=== PATIENT | male | born 1980 | race Caucasian/White ===

== ENCOUNTER 2024-03-05 22:00 | Emergency (ER) | payer MEDICAID, SELFPAY ==
[2024-03-05 22:06] VITALS: BP 198/146
[2024-03-05 22:09] VITALS: BP 244/143
[2024-03-05 22:13] VITALS: BP 175/138
[2024-03-05 22:27] LABS: % Basophils 0.4 % (0-2); % Immature Granulocytes 0.3 % (0-0.5); % Lymphocytes 22.3 % (20.5-51.1); % Monocytes 5.8 % (1.7-9.3); % Neutrophils 70.2 % (42.2-75.2); Absolute Eosinophils 0.1 10^3/uL (0-0.7); Absolute Lymphocytes 2.5 10^3/uL (1.2-3.4); Absolute Monocytes 0.6 10^3/uL (0.1-0.6); Absolute Neutrophils 7.8 10^3/uL (1.4-6.5); Hematocrit 46.3 % (39.0-52.0); Hemoglobin 16.1 g/dL (13.0-18.0); Mean Corp Hgb Conc. 34.8 g/dL (33.0-37.0); Mean Corpuscular Hgb 31.6 pg (27.0-31.0); Mean Corpuscular Volume 90.8 fL (80.0-94.0); Mean Platelet Volume 10.3 fL (7.4-10.4); Nucleated Red Blood Cells % 0 % (-); Platelet Count 210 10^3/uL (130-400); Red Cell Dist. Width 12.7 % (11.5-14.5); White Blood Cell Count 11.1 10^3/uL (4.8-10.8)
[2024-03-05 22:42] LABS: ALT (SGPT) 38 U/L (0-50); AST (SGOT) 33 U/L (17-59); Albumin 4.5 g/dl (3.5-5.0); Alkaline Phosphatase 89 U/L (38-126); Blood Urea Nitrogen 19 mg/dl (9-20); Calcium 9.4 mg/dl (8.4-10.2); Carbon Dioxide 24 mmol/L (22-30); Chloride 106 mmol/L (98-107); Glucose 129 mg/dl (70-99); Potassium 4.1 mmol/L (3.5-5.1); Sodium 139 mmol/L (135-145); Total Bilirubin 0.3 mg/dl (0.2-1.3); eGFR > 60.00
[2024-03-05 22:52] LABS: Troponin I 0.034 ng/ml
[2024-03-05 23:37] VITALS: BP 167/118
[2024-03-05 23:45] VITALS: BP 143/107
[2024-03-05 23:52] VITALS: BMI 31.9
[2024-03-06] VITALS (7 sets, daily range): BP systolic 140–159; BP diastolic 88–107
--- NOTE | 2024-03-06 03:24 | ED.GENMED ---
History of Present Illness
General
Chief Complaint: Blood Pressure Problem
Source: patient, previous radiology exam (February 2022: Unremarkable CT as well as MRI of the brain. Unremarkable CTA of the chest abdomen pelvis. MRI of the cervical spine showing bulging disks C6-C7 to the left.) and previous hospital records
(Previous hospitalization 2 years ago for very similar complaint.)
Exam Limitations: none
Time Seen by Provider: 03/06/24 02:26
Nursing documentation reviewed up to this point in time: agreed with
History of Present Illness
History of Present Illness:
This is a 43-year-old gentleman who has a longstanding history of malignant hypertension, history of IgA nephropathy as well as longstanding history of chronically poor compliance with medications and follow-up. He admits that he does not have a
primary care physician.
He was hospitalized here 2 years ago with similar complaints of elevated blood pressure, left-sided headache as well as left-sided chest pain. At that time he was having some left arm numbness as well.
Noted to be significantly hypertensive, CTA of the chest abdomen pelvis was unremarkable. CT of the brain as well as follow-up MRI of the brain was unremarkable.
MRI cervical spine showed bulging disc to the left at C6-C7 with C7 nerve root encroachment.
His usual blood pressure medications were resumed and he was recommended to follow-up with pain management as well as cardiology. Patient states he did follow-up once with cardiology and medications were refilled for the year which he ran out of a
year ago. He admits to neglecting follow-up with pain management and has had no further numbness but continues with frequent left-sided headaches, taking Excedrin Migraine on a daily basis generally 2-3 times per day.
Left-sided headache has worsened over the past week and he initially presented to urgent care due to intermittent right testicular pain and ache over the past week.
He was noted to have significantly elevated blood pressure at urgent care and recommended to come to the ED for further evaluation. En route to the hospital he admits to onset of some left-sided chest pain which has since resolved.
He denies weakness nor numbness, he does admit to some vision difficulty, noting that he has to hold his paperwork further away from his eyes to focus, he states he cannot focus up close as he used to in the past. The symptoms have been ongoing for
several months to perhaps at least a year.
He denies dysuria urgency or hematuria, no neck nor back pain, no cough no shortness of breath, no dizziness nor lightheadedness.
Patient states he did have 3 hypertensive medications given to him by somebody else that he took after urgent care visit, 1 was losartan. He is unsure of the other 2.
Initial blood pressure upon arrival to the ED elevated at 198/146.
Blood pressure has improved to 140/86.
Moderate left sided headache.
Past History
Past History
ED Past Medical History: HTN, Other (Chronic migraine headache) and Other (IgA nephropathy and hypertension x many years)
ED Past Surgical History: None
Social History
Tobacco: Smoker
Alcohol: None
Drug: Marijuana
Personal: Single
Living: alone
Employment: Employed
Phy Exam
Physical Exam
Physical Exam:
GENERAL: 43-year-old gentleman appears somewhat older than stated age, awake and alert, pleasant, appears in no acute distress.
EYE: pupils equal and reactive. Extraocular muscles intact. Discs are sharp bilaterally. Anicteric
NECK: Supple, nontender, no meningismus, no significant adenopathy. No JVD.
ENT: posterior pharynx is clear, oral mucosa is moist. TM clear b/l, nares patent.
CARDIAC: Regular rate and rhythm. no murmur. No rubs.
LUNGS: Clear breath sounds bilaterally, no acute respiratory distress, no wheezes/rales/rhonchi
ABDOMEN: Soft, nondistended, without focal tenderness, no r/g, no cvat. normoactive BS.
NEUROLOGICAL: Alert and oriented x3, no focal neuro deficits. Gait is steady.
SKIN: Warm and dry, normal color, skin intact. No rash.
MUSCULOSKELETAL: No C/C/E. peripheral pulses are full and equal b/l. No palpable tenderness.
PSYCH: Normal and appropriate interaction.
Course
Orders/Labs/Results
Orders:
Orders
03/05/24 22:01
EKG [Electrocardiogram (*1)] Urgent
Reason for Study: Chest Pain
EKG- Treatment ONCE
03/05/24 22:21
Complete Blood Count/With Diff Urgent
Troponin I Urgent
03/05/24 22:22
Comprehensive Metabolic Panel Urgent
03/06/24 02:55
CT Head W/o Iv Contrast Urgent
Comment:
Reason For Exam: left sided headache, elevated BP
03/06/24 03:28
HIV 4th Generation [HIV Combo] Urgent
Hepatitis B Core Ab, Total Urgent
Hepatitis B Surface Antibody Urgent
Hepatitis B Surface Antigen Urgent
Hepatitis C Antibody Urgent
RPR [Syphilis/T. pallidum Ab Reflex] Urgent
Troponin I Urgent
Chlamydia/GC by PCR Urgent
SOWMYA Source: Urine
Specimen Description:
Source:: URINE
Date Specimen was Collected: 03/06/24
Time Specimen was Collected: 03:27
03/06/24 04:15
Dexamethasone Sod Phosphate [Decadron] 10 mg IV NOW STA
Ketorolac [Toradol] 30 mg IV NOW STA
Abnormal Lab Results
03/05/24 03/05/24
22:21 22:22
WBC 11.1 H 10^3/uL
(4.8-10.8)
MCH 31.6 H pg
(27.0-31.0)
Absolute Neuts (auto) 7.8 H 10^3/uL
(1.4-6.5)
Glucose 129 H mg/dl
(70-99)
03/05/24 22:21
03/05/24 22:22
Vital Signs
Initial and Last Documented VS:
Initial Vital Signs
Temp Pulse Resp BP Pulse Ox
98.8 F 95 16 198/146 97
03/05/24 22:06 03/05/24 22:06 03/05/24 22:06 03/05/24 22:06 03/05/24 22:06
Last Documented Vital Signs
Temp Pulse Resp BP Pulse Ox
98.8 F 57 14 157/103 98
03/05/24 22:06 03/06/24 05:55 03/06/24 05:55 03/06/24 05:55 03/06/24 05:55
MDM/Problems Addressed
Differential Diagnosis Includes:
Patient presents with poorly controlled accelerated hypertension with poor compliance with antihypertensive medications. He also notes somewhat chronic headache that I suspect is migraine in nature, perhaps medication overuse headache but must also
consider intracranial hemorrhage.
No focal neurodeficits.
He also notes acute left-sided chest pain, concern for ACS. Dissection less likely. Hypertension has improved and chest pain was brief in nature, no other associated symptoms.
EKG similar and unchanged from previous 2 years ago.
Labs thus far unremarkable. Troponin within normal limits.
Will check CT of the head and repeat troponin.
Ultimately patient will require PCP for follow-up. He does have health insurance/medical assistance thus recommend he follow-up with our family practice residency clinic.
Testicular exam is within normal limits.
He denies dysuria nor urethral discharge but does request STD testing�admits to unprotected sex.
Chronic conditions affecting care: HTN and Kidney disease
Acute Exacerbation and/or Progression of Chronic Illness: HTN
*Radiology
Radiology exam reviewed: radiology read reviewed
*Pulse Oximetry
Patient hypoxic: no
*EKG
Interpreted by ED Provider?: Yes
Interpretation: abnormal
Comparison EKG: no changes (Unchanged from previous February 2022)
Rate: normal
Rhythm: sinus
[place]: left axis deviation
Interval: normal interval
QRS Pattern: normal QRS and left vent hypertrophy
Ischemia: T-wave inversion
*Jewelry Technician Interpretation
Rate: normal
Interpretation: normal
Rhythm: sinus
*Critical Care Note
Total Time (30-74mins, 75-104mins- exclusive of procedures): Not Applicable
Update Note
Update Note:
05:15
CT of the head is unremarkable.
Troponin remains flat, unchanged.
Patient has been given an IV dose of Toradol for chronic headache which again I suspect is migraine phenomenon, suspect medication overuse/rebound headache.
Along with Toradol will give an IV dose of Decadron and will plan for tapering course of prednisone. Along with this recommend he avoid any [id number] medicines for headache including Excedrin Migraine, Tylenol, ibuprofen.
Will resume his previous antihypertensive medications.
Recommend prompt follow-up with PCP and he will be provided information for family practice residency clinic.
If headaches persist may require neurology evaluation.
ED Attending Note
-
Portions of this chart may have been created with voice recognition software.� Occasional wrong word or��sound alike� substitutions may have occurred due to the inherent limitations of voice recognition software.
Discharge Plan
Departure
Patient Disposition: Home (Routine Discharge)
Date of Disposition: 03/06/24
Time of Disposition: 05:17
Patient with high blood pressure during this ER visit?: No
Condition: Good
Discharge Problem:
Accelerated essential hypertension, Chronic migraine headache, Medication overuse headache, Noncompliance
Instructions: High Blood Pressure (DC), Migraine in adults, How to Keep Track of Your Headaches
Prescriptions:
New
lisinopril 10 mg tablet
10 mg PO DAILY Qty: 30 0RF
nifedipine 60 mg tablet extended release
60 mg PO DAILY Qty: 30 0RF
prednisone 10 mg Tablet
See Rx Instructions .ROUTE .COMPLEX Qty: 30 0RF
Rx Instructions:
Take By Mouth:
40 mg daily x3 days, 30 mg daily x3 days,
20 mg daily x3 days, 10 mg daily x3 days.
No Action
sennosides [senna] 8.6 mg Tablet
8.6 mg PO BID Qty: 0 0RF
tizanidine 4 mg Tablet
4 mg PO BID Qty: 60 0RF
acetaminophen 500 mg Tablet
1,000 mg PO Q8H Qty: 0 0RF
amitriptyline 10 mg Tablet
10 mg PO HS Qty: 30 0RF
lisinopril 10 mg Tablet
10 mg PO DAILY Qty: 60 0RF
docusate sodium 100 mg Capsule
100 mg PO BID Qty: 0 0RF
nifedipine 60 mg Tablet Extended Release
60 mg PO BID Qty: 120 0RF
oxycodone 5 mg Tablet
5 mg PO Q4HPRN PRN (Reason: MODERATE PAIN) Qty: 30 0RF
pregabalin 100 mg Capsule
100 mg PO TID Qty: 90 0RF
Referrals:
[facility] [Provider Group] - Call in 1-3 days for appt
NONE,* [Family Provider] -
Interventions
Interventions:
*Risk Screen - Suicide Last Done: 03/05/24 22:06
*General Assessment Last Done: 03/05/24 23:56
*Neglect/Abuse Screening Last Done: 03/05/24 22:06
ED- Fall Risk Assessment Last Done: 03/06/24 05:07
*ED COVID-19 Vaccine History Last Done: 03/05/24 23:58
*Nursing Disposition Last Done: 03/06/24 05:55
ED- Cardiac Assessment Last Done: 03/05/24 23:53
ED- Neurological Assessment Last Done: 03/05/24 23:54
ED- Pulmonary Assessment Last Done: 03/05/24 23:53
Discharge Date and Time
Discharge Date/Time: 03/06/24 05:56
Print Language: TAMAZIGHT
[2024-03-06 04:13] LABS: Troponin I 0.034 ng/ml
[2024-03-06] MEDS: TORADOL 30 MG IV (04:26)
[2024-03-06] MEDS: DECADRON 10 MG IV (04:26)
[2024-03-06 13:11] LABS: HIV Combo Negative (Negative)
[2024-03-06 18:28] LABS: Hepatitis B Surface Antigen Negative (Negative)
[2024-03-06 18:46] LABS: Hepatitis B Core Ab, Total Negative (Negative); Hepatitis B Surface Antibody Negative; Hepatitis C Antibody Negative (Negative)
== END 2024-03-06 05:56 | disposition home or self-care (01) ==
LOC: EMR 22:00
PROVIDERS: Emergency Medicine; EMERGENCY PHYSICIAN Emergency Medicine
DX: G43.909 Migraine, unspecified, not intractable, without status migrainosus (principal); G44.40 Drug-induced headache, not elsewhere classified, not intractable; Z91.199 Patient's noncompliance with other medical treatment and regimen due to unspecified reason; I10 Essential (primary) hypertension; F17.200 Nicotine dependence, unspecified, uncomplicated
CPT/HCPCS: 99285; 96374; 96375; 70450; 80053; 84484; 85025; 86704; 86706; 86780; 86803; 87340; 87389; 87491; 87591; 93005

== ENCOUNTER 2024-05-16 08:17 | Inpatient (IN) | payer OTHER, SELFPAY ==
[2024-05-15 16:25] VITALS: BP 161/105
[2024-05-15 16:51] LABS: % Basophils 0.3 % (0-2); % Eosinophils 0.2 % (0-6); % Immature Granulocytes 0.3 % (0-0.5); % Lymphocytes 13.4 % (20.5-51.1); % Monocytes 4.6 % (1.7-9.3); % Neutrophils 81.2 % (42.2-75.2); Absolute Lymphocytes 1.5 10^3/uL (1.2-3.4); Absolute Monocytes 0.5 10^3/uL (0.1-0.6); Absolute Neutrophils 9.1 10^3/uL (1.4-6.5); Hemoglobin 14.8 g/dL (13.0-18.0); Mean Corp Hgb Conc. 35.2 g/dL (33.0-37.0); Mean Corpuscular Hgb 31.7 pg (27.0-31.0); Mean Corpuscular Volume 89.9 fL (80.0-94.0); Mean Platelet Volume 9.7 fL (7.4-10.4); Nucleated Red Blood Cells % 0 % (-); Platelet Count 226 10^3/uL (130-400); Red Blood Cell Count 4.67 10^6/uL (4.70-6.10); Red Cell Dist. Width 13.1 % (11.5-14.5); White Blood Cell Count 11.1 10^3/uL (4.8-10.8)
[2024-05-15 17:09] LABS: ALT (SGPT) 52 U/L (0-50); AST (SGOT) 32 U/L (17-59); Albumin 5.2 g/dl (3.5-5.0); Alkaline Phosphatase 87 U/L (38-126); Blood Urea Nitrogen 25 mg/dl (9-20); Calcium 10.3 mg/dl (8.4-10.2); Carbon Dioxide 21 mmol/L (22-30); Chloride 109 mmol/L (98-107); Glucose 115 mg/dl (70-99); Potassium 4.9 mmol/L (3.5-5.1); Sodium 143 mmol/L (135-145); Total Bilirubin 0.6 mg/dl (0.2-1.3); Total Protein 7.7 g/dl (6.3-8.2); eGFR > 60.00
[2024-05-15 17:15] LABS: NT-proBNP 105 pg/ml; Troponin I < 0.012 ng/ml
--- NOTE | 2024-05-15 18:40 | ED.GENMED ---
History of Present Illness
General
Chief Complaint: Swelling
Source: patient
Exam Limitations: none
Time Seen by Provider: 05/15/24 18:24
History of Present Illness
History of Present Illness:
44yoM with a history of IgA nephropathy and hypertension presenting for evaluation of leg swelling. Patient reports bilateral leg swelling and pain over the past 2 weeks. Symptoms are worse with standing. He has also had some exertional dyspnea.
He states he has to take a break every 10 minutes during activity and lift his legs up. He has gained about 20 pounds over the past year. He was seen at the cardiology office today and was referred to the ED for echocardiogram and admission. He
was seen in the ED on 03/06/2024 for accelerated hypertension. Prior to this, he did not take his medications for about a year but has been taking his medications consistently since February. He denies any chest pain. Worries slow steady
Past History
Past History
ED Past Medical History: HTN, Other (Chronic migraine headache) and Other (IgA nephropathy and hypertension x many years)
ED Past Surgical History: None
Social History
Tobacco: Smoker
Alcohol: None
Drug: Marijuana
Personal: Single
Living: alone
Employment: Employed
Phy Exam
General Physical Exam
General Presentation: well appearing and no apparent distress
General age: appears stated age
General Skin: warm and dry
General Habitus: normal
General Mental: alert
ENT Exam
ENT Exam: normocephalic
Cardiovascular Exam
Cardiovascular Exam: regular rate/rhythm, no murmur and other (Non-pitting edema noted to lower extremities)
Pulmonary Exam
Pulmonary Exam: lungs clear, no respiratory distress, no rales, no crackles and no rhonchi
Neurological Exam
Neurological Exam: alert
[place] Coma Scale
Eye Opening: Spontaneous
Verbal Response: Oriented
Motor Response: Obeys Commands
GCS Total Score: 15
Skin Exam
Skin Exam: normal color and warm/dry
Psychiatric Exam
Psychiatric Exam: normal mood/affect
Course
Orders/Labs/Results
Orders:
Orders
05/15/24 Dinner
Cholesterol Lowering
At Your Request: Full Participation
Cholesterol Lowering: Sodium, 2 Gram
05/15/24 16:27
Electrocardiogram (*1) Urgent
Reason for Study: Shortness of Breath
EKG- Treatment ONCE
05/15/24 16:36
Complete Blood Count/With Diff Urgent
Comprehensive Metabolic Panel Urgent
NT-proBNP Urgent
Troponin I Urgent
05/15/24 18:39
Cardiac Monitoring- Treatment ONCE
CR Chest - 2 Views Urgent
Comment:
Reason For Exam: SOB
Venous Doppler Lwr Ext Bilat [US Periph Venous LOWER Ext [place]] Urgent
Comment:
Reason For Exam: leg swelling
05/15/24 18:56
D-Dimer Urgent
05/15/24 20:04
Furosemide [Lasix] 40 mg IV NOW STA
05/15/24 21:02
Admit/Transfer Patient As Directed
Co-Sign Provider:
Level of Care: Observation services
Assign to:: Telemetry
Physician / Group: Harleen Irby
Diagnosis: acute heart failure
Reason for Telemetry: Acute Heart Failure
Date to Stop Telemetry: 05/18/24
Time to Stop Telemetry: 11:00
PRN Pain Medication Management As Directed
May give lesser potent ordered pain med per pt: Yes
preference::
Protocol:: Medication orders for pain may be administered in a
manner that supports deferring to patient preference
when the pt is:
- Requesting an ordered lesser potent pain medication.
Least to most potent pain medications are defined
as: acetaminophen < NSAID < tramadol < opioids
(morphine, oxycodone, hydromorphone).
- Requesting a lesser dose of the same medication IF
ORDERED.
- Requesting a less intrusive route of administration
if both routes are prescribed by the provider (PO <
IV).
05/15/24 21:03
Code Status As Directed
Resuscitation Status: Full Code
05/15/24 21:09
UA Reflex to Culture [Urinalysis Reflex To Culture] Routine
Date Specimen was Collected: 05/15/24
Time Specimen was Collected: 20:54
Urine Microscopic Reflex Cult Routine
05/15/24 22:00
Flush (0.9% Sodium Chloride) [Flush (Nss)] See Dose Instructions IV PER PROTOCOL
05/15/24 22:20
NIFEdipine EXTENDED RELEASE [Procardia Xl (Extended Release)] 60 mg PO BID
05/15/24 22:20
CARDIOLOGY CONSULT Routine
Consulting Provider: Caesar Hull
Was physician already notified: Yes
HF DIETARY CONSULT Routine
HF EDUCATOR CONSULT Routine
Comment:
Activity As Directed
Activity Level: Out of Bed-Early Mobility
Intake/ Output As Directed
Frequency: Per unit guidelines
Patient Education As Directed
Type: CHF folder
Comment: give on admission. Document in Interdisciplinary Education record
Sleep Apnea Assessment by RN As Directed
Comment:
Physician Instructions:
Vital Signs As Directed
Frequency: Other
Additional Instructions:: Q12 or per unit guidelines if more frequent.
Weight As Directed
Frequency: Daily
Type of Scale: Standing Scale
Comment: Daily morning weight. If unable to stand, use balanced bed scale.
Weight As Directed
Frequency: Once
Type of Scale: Standing Scale
Comment: Upon Admission. If unable to stand, use balanced bed scale.
Pulse Ox/cont/shift [RESP] Routine
Quantity: 1
Special Instructions: Daily pulse oximetry at rest. If greater than 92% at rest also obtain pulse oximetry
while ambulating as tolerated.
DX Deep Vein Thrombosis Video Routine
05/16/24 06:00
Echo 2D MMode Color/Doppler IN AM
Reason for Study: heart failure
Basic Metabolic Panel IN AM
Cardiovascular Evaluation IN AM
Complete Blood Count/No Diff IN AM
05/16/24 08:00
Furosemide [Lasix] 40 mg IV DAILY
Lisinopril [Zestril] 10 mg PO DAILY
05/16/24 18:00
Enoxaparin Sodium [Lovenox] 40 mg SC QPM
05/17/24 06:00
Basic Metabolic Panel IN AM
05/18/24 06:00
Basic Metabolic Panel IN AM
05/18/24 11:00
DC Protocol for Telemetry ONCE
Abnormal Lab Results
05/15/24 05/15/24
16:36 21:09
WBC 11.1 H 10^3/uL
(4.8-10.8)
RBC 4.67 L 10^6/uL
(4.70-6.10)
MCH 31.7 H pg
(27.0-31.0)
Absolute Neuts (auto) 9.1 H 10^3/uL
(1.4-6.5)
Neutrophils % 81.2 H %
(42.2-75.2)
Lymphocytes % 13.4 L %
(20.5-51.1)
Chloride 109 H mmol/L
(98-107)
Carbon Dioxide 21 L mmol/L
(22-30)
BUN 25 H mg/dl
(9-20)
Glucose 115 H mg/dl
(70-99)
Calcium 10.3 H mg/dl
(8.4-10.2)
ALT 52 H U/L
(0-50)
Albumin 5.2 H g/dl
(3.5-5.0)
Urine Bacteria (Reflex) Few A
(Negative)
Urine Albumin (Reflex) 1+ A
(Neg - Trace)
05/15/24 16:36
05/15/24 16:36
Vital Signs
Initial and Last Documented VS:
Initial Vital Signs
Temp Pulse Resp BP Pulse Ox
98.6 F 103 16 161/105 99
05/15/24 16:25 05/15/24 16:25 05/15/24 16:25 05/15/24 16:25 05/15/24 16:25
Last Documented Vital Signs
Temp Pulse Resp BP Pulse Ox
99.0 F 93 18 138/99 100
05/15/24 22:31 05/15/24 22:31 05/15/24 22:31 05/15/24 22:31 05/16/24 00:19
MDM/Problems Addressed
Differential Diagnosis Includes:
44yoM here with bilateral leg swelling x 2 weeks. Also c/o exertional dyspnea. Sent in by cardiology office for admission. Patient is mildly hypertensive on arrival with otherwise normal vital signs. There is non pitting edema in both lower
extremities. No rales appreciated on exam. Differential diagnosis includes but is not limited to: CHF, VTE, deconditioning, dependent edema
Initial ED plan: Cardiac labs and EKG obtained in triage. EKG shows normal sinus rhythm without ischemic changes. Both troponin and BNP are normal. Will check D-dimer, bilateral venous duplex, and chest x-ray.
*EKG
Interpreted by ED Provider?: Yes
EKG Intrepretation Date: 05/15/24
Heart Rate: 92
Rate: normal
Rhythm: sinus
[place]: left axis deviation
QRS Pattern: left vent hypertrophy
Ischemia: T-wave inversion (I and aVF)
*Critical Care Note
Total Time (30-74mins, 75-104mins- exclusive of procedures): Not Applicable
Update Note
Update Note:
Venous duplex negative for DVT bilaterally and D-dimer is normal. No pulmonary edema seen on chest x-ray. 40mg IV Lasix ordered and patient admitted per cardiology recommendations.
ED Attending Note
-
Portions of this chart may have been created with voice recognition software.� Occasional wrong word or��sound alike� substitutions may have occurred due to the inherent limitations of voice recognition software.
Discharge Plan
Departure
Patient Disposition: Admit
Date of Disposition: 05/15/24
Time of Disposition: 20:11
Presentation/result/management discussed w/ accepting MD/DO: Hospitalist
Discharge Problem:
Bilateral lower extremity edema
Interventions
Interventions:
*Risk Screen - Suicide Last Done: 05/15/24 16:26
*General Assessment Last Done: 05/15/24 18:57
*Neglect/Abuse Screening Last Done: 05/15/24 16:26
*ED- Fall Risk Assessment Last Done: 05/15/24 18:57
*ED COVID-19 Vaccine History Last Done: 05/15/24 18:57
*Nursing Disposition Last Done: 05/15/24 22:13
ED- Cardiac Assessment Last Done: 05/15/24 19:10
ED- Pulmonary Assessment Last Done: 05/15/24 19:10
ED-Skin Assessment Last Done: 05/15/24 19:10
Discharge Date and Time
Discharge Date/Time: 05/15/24 22:14
[2024-05-15 19:00] VITALS: BP 153/106
[2024-05-15 19:55] LABS: D-Dimer 0.36 ug/mlFEU (0.00-0.50)
[2024-05-15] MEDS: LASIX 40 MG IV (20:13)
[2024-05-15 20:14] VITALS: BP 146/99
--- NOTE | 2024-05-15 20:22 | HPS.HSE ---
Family Physician
<MELANY Arzola - Last Filed: 05/15/24 22:56>
-
Family Physician: * NONE
Chief Complaint
<MELANY Arzola - Last Filed: 05/15/24 22:56>
-
BLLE edema and exertional dyspnea
History of Present Illness
Patient is a 44-year-old male with past medical history significant for IgA nephropathy and hypertension who presented to [facility] ED for evaluation after recommendation of cardiology. Patient reports appointment scheduled today with cardiology for HTN
and new onset BLLE edema with exertional dyspnea. Patient states he has not been working recently and has not had a permanent residence for a period of time. He reports gaining a significant amount of weight in the last 2 years and has been
attributing his dyspnea with that. He also notes when he becomes dyspneic he does have diaphoresis. Patient denies chest pain, cough, fevers, palpitations, nausea or vomiting.
Medical History
<MELANY Arzola - Last Filed: 05/15/24 22:56>
Past Medical History
Past Medical History: Reports Other
Additional Past Medical History:
IgA nephropathy
hypertension
Past Surgical History: Reports None
Social History
Tobacco: Smoker (socially smokes <1 pack per week )
Alcohol: None
Drug: Marijuana (does smoke marijuana occasionally )
Personal: Single
Living: Homeless
Employment: Not Employed
Family History
Family History: Other (Father: HTN )
Allergies / Home Medications
Allergies reflects when Allergies were last updated in [employer].
Home Medications with original date entered in [employer]
<Harleen Irby MD - Last Filed: 05/15/24 22:44>
Allergies / Home Medications
Allergy/Medication List:
Allergies
Allergy/AdvReac Type Severity Reaction Status Date / Time
No Known Allergies Allergy Verified 03/05/24 22:06
Home Medications
acetaminophen 500 mg tablet 1,000 mg (2 x 500 mg) PO Q8H #0 tabs 02/22/22
amitriptyline 10 mg tablet 10 mg PO HS #30 tabs 02/22/22
docusate sodium 100 mg capsule 100 mg PO BID #0 caps 02/22/22
lisinopril 10 mg tablet 10 mg PO DAILY #60 tabs 02/22/22
nifedipine 60 mg tablet,extended release 60 mg PO BID #120 tabs 02/22/22
oxycodone 5 mg tablet 5 mg PO Q4HPRN PRN MODERATE PAIN #30 tabs 02/22/22
pregabalin 100 mg capsule 100 mg PO TID #90 caps 02/22/22
sennosides 8.6 mg tablet (senna) 8.6 mg PO BID #0 tabs 02/22/22
tizanidine 4 mg tablet 4 mg PO BID #60 tabs 02/22/22
lisinopril 10 mg tablet 10 mg PO DAILY #30 tabs 03/06/24
nifedipine 60 mg tablet,extended release 60 mg PO DAILY #30 tabs 03/06/24
prednisone 10 mg tablet See Rx Instructions .Route .COMPLEX #30 tabs 03/06/24
*awaiting med rec
Review of Systems
<MELANY Arzola - Last Filed: 05/15/24 22:56>
-
History Source: Patient
Constitutional: Reports Weight Gain
EENT: Reports No Symptoms
Respiratory: Reports Trouble Breathing (exertional dyspnea )
Cardiac: Reports Diaphoresis
Abdomen/GI: Reports No Symptoms
: Reports No Symptoms
Musculoskeletal: Reports Edema (BLLE)
Skin: Reports No Symptoms
Neurological: Reports No Symptoms
Endocrine: Reports No Symptoms
Hematologic/Lymphatic: Reports No Symptoms
Psych: Reports No Symptoms
Physical Exam
<MELANY Arzola - Last Filed: 05/15/24 22:56>
Vital Signs
Vital Signs
Temp Pulse Resp BP Pulse Ox
98.6 F 83 19 153/106 97
05/15/24 16:25 05/15/24 19:15 05/15/24 19:15 05/15/24 19:00 05/15/24 19:15
Physical Exam
General: Well Developed, Well Nourished, No Apparent Distress, Comfortable, Conversant and Morbidly Obese
HEENT: NormoCephalic, Moist mucous membranes, Atraumatic, [place] Conjunctivae, Nose Appears Normal and Ears Appear Normal
Respiratory: Clear and Non Labored Respirations
Cardiac: S1/S2, Regular Rhythm and Tachycardia
Breast: Deferred by me
GI: Soft, Non Tender, Non Distended and Normal Bowel Sounds; No Organomegaly
Rectal: Deferred by Provider
Genito-urinary: Deferred by me
Musculoskeletal: No Clubbing, No Cyanosis, Edema, Left Lower Extremity and Edema, Right Lower Extremity
Skin: IV/Catheter Site
Neuro: Awake, Alert, AO x 3 and Nonfocal/grossly intact
Psych: Calm and Intact Judgment/Insight
Laboratory Results
<MELANY Arzola - Last Filed: 05/15/24 22:56>
-
05/15/24 16:36
05/15/24 16:36
Laboratory Results
Total Bilirubin 0.6 mg/dl (0.2-1.3) 05/15/24 16:36
AST 32 U/L (17-59) 05/15/24 16:36
ALT 52 U/L (0-50) H 05/15/24 16:36
Alkaline Phosphatase 87 U/L (38-126) 05/15/24 16:36
Troponin I < 0.012 ng/ml 05/15/24 16:36
Data Reviewed
<MELANY Arzola - Last Filed: 05/15/24 22:56>
-
Diagnostic Radiology: Report Reviewed by me (CXR: No acute cardiopulmonary process. No interval change.)
Ultrasound: Report Reviewed by me (BLLE: No evidence of deep venous thrombosis of the lower extremities bilaterally. No interval change.)
Medical Tests (Nuc Med, Echo, EKG etc): Report Reviewed by me (EKG: NORMAL SINUS RHYTHM LEFT VENTRICULAR HYPERTROPHY WITH REPOLARIZATION ABNORMALITY ( R in aVL ))
Lab Data: Labs Reviewed by me (WBC 11.1, Neut 81.2)
Impression/Plan
<MELANY Arzola - Last Filed: 05/15/24 22:56>
-
IMPRESSION/PLAN:
#BLLE edema likely 2/2 acute heart failure
BNP 105
BLLE US: No evidence of deep venous thrombosis of the lower extremities bilaterally.
No interval change.
EKG: NORMAL SINUS RHYTHM
LEFT VENTRICULAR HYPERTROPHY WITH REPOLARIZATION ABNORMALITY ( R in aVL )
- Admit to telemetry
- Consult Cardiology
- IV Lasix
- ECHO in morning
#hypertension
- restart lisinopril and nifedipine
#IgA nephropathy
- consider nephrology consult as indicated
Code status: full code
DVT prophylaxis: Lovenox sq
--- NOTE | 2024-05-15 20:39 | W.PN.UPDATE ---
Update Note
Progress Note Update
This is an addendum to H&P written by PRESS OPERATOR CARBON BLOCKS Lexy Landon
I saw and examined the patient.
The PRESS OPERATOR [employer]BON BLOCKS's note was reviewed and I agree with the note.
Comment:
Mr. Nino Mancuso is a 44 yo man with hx IgA Nephropathy (dx age 17 treated with high-dose RADHA-I), essential HTN presents to the ER for evaluation of bilateral lower extremity swelling and intermittent exertional dyspnea.
Triage VS: T 98.6, P 103, RR 16, BP 161/105, SpO2 99%
LABS: WBC 11.1, Hg 14.8, PLT 226, Na 143, K+ 4.9, Cl 109, CO2 21, BUN 25, Cr 1.2, Glucose 115, T. Bili 0.6, AST 32, ALT 52, Alk Phos 87, Trop < 0.012, BNP 105
CXR
IMPRESSION:
No acute cardiopulmonary process.
No interval change.
LE US
IMPRESSION: No evidence of deep venous thrombosis of the lower extremities bilaterally.
No interval change.
Acute heart Failure Exacerbation, unknown EF
-LE without DVT
-admit to telemetry
-significant UO post one dose IV lasix in ER, will continue daily
-TTE
-daily weights, strict I/O
-Cardiology consult
Hg IgA Nephropathy
-continue IT HELP DESK ASSOCIATE Lisinopril
-F/U UA
-consider renal consult this admission
Essential HTN
-IT HELP DESK ASSOCIATE Nifedipine, Lisinopril
DVT PPx
Remainder of plan per PRESS OPERATOR CARBON BLOCKS note
[2024-05-15 21:00] VITALS: BP 125/87
[2024-05-15 21:13] LABS: Urine Albumin 1+ (Neg - Trace); Urine Bilirubin Negative (Negative); Urine Character Clear (Clear); Urine Color Yellow; Urine Glucose Negative (Negative); Urine Ketone Negative (Negative); Urine Leukocyte Negative (Negative); Urine Nitrite Negative (Negative); Urine Occult Blood Negative (Negative); Urine Specific Gravity 1.015 (<1.030); Urine Urobilinogen Negative (Neg - 1+)
[2024-05-15 21:24] LABS: Urine Bacteria Few (Negative); Urine Red Blood Cell 0-2 /HPF (0-2); Urine Squamous Cell 0-2 /LPF (Few); Urine White Cell 0-2 /HPF (0-5)
[2024-05-15 22:00] VITALS: BP 132/100
[2024-05-15 22:31] VITALS: BP 138/99; BMI 31.2
[2024-05-15] MEDS: PROCARDIA XL (EXTENDED RELEASE) 60 MG PO (22:34)
[2024-05-16 03:20] VITALS: BP 126/74
[2024-05-16 06:00] VITALS: BMI 31.2
[2024-05-16 07:00] LABS: Hematocrit 44.4 % (39.0-52.0); Hemoglobin 15.1 g/dL (13.0-18.0); Mean Corpuscular Hgb 31.2 pg (27.0-31.0); Mean Corpuscular Volume 91.7 fL (80.0-94.0); Mean Platelet Volume 9.6 fL (7.4-10.4); Platelet Count 212 10^3/uL (130-400); Red Blood Cell Count 4.84 10^6/uL (4.70-6.10); Red Cell Dist. Width 13.1 % (11.5-14.5); White Blood Cell Count 9.5 10^3/uL (4.8-10.8)
[2024-05-16 07:05] VITALS: BP 108/78
[2024-05-16 07:14] LABS: Blood Urea Nitrogen 25 mg/dl (9-20); Calcium 9.5 mg/dl (8.4-10.2); Carbon Dioxide 27 mmol/L (22-30); Chloride 106 mmol/L (98-107); Estimated Creatinine Clearance 96 ml/min; Glucose 111 mg/dl (70-99); HDL Cholesterol 50 mg/dl; LDL Cholesterol, Calculated 146 mg/dl; Potassium 4.7 mmol/L (3.5-5.1); Sodium 144 mmol/L (135-145); Total Cholesterol 218 mg/dl (50-199); Triglyceride 111 mg/dl (10-149); Very Low Density Lipoprotein 22 mg/dl (0-30); eGFR > 60.00
[2024-05-16] MEDS: ZESTRIL 10 MG PO (07:42)
[2024-05-16] MEDS: LASIX 40 MG IV (07:50)
[2024-05-16] MEDS: PROCARDIA XL (EXTENDED RELEASE) 60 MG PO (07:50)
--- NOTE | 2024-05-16 09:40 | CON.CAR ---
Addendum entered and electronically signed by Cruz Donaldson MD 05/16/24 16:38:
I saw and examined the patient.
The Customer Program Manager's note was reviewed and I agree with the note.
Comment: Briefly, 44-year-old male past medical history of hypertension and prior hospitalization for hypertensive emergency who was referred for evaluation given elevated blood pressures, chest discomfort and lower extremity edema. It seems that
he has not been reliably taking his antihypertensive meds and has not been following up regularly.
Here he received a dose of IV Lasix and home blood pressure meds were resumed
Echo here with normal LV function and no high-grade valve disease
Today appears euvolemic on exam and blood pressure is better controlled
Given his report of lower extremity edema would decrease nifedipine to 60 mg daily as edema may be a side effect
Add hydrochlorothiazide as additional BP med
Lisinopril was placed on hold
Would benefit from nonpharmacologic treatments of hypertension such as low-salt diet
Stable cardiac status, we will sign off, please recall as needed
Outpatient follow-up to be arranged
Original Note:
Consultation
Consultation Request
Date/Time Consultation Requested: 05/16/2024
Date/Time Consultation Performed: 05/16/2024
Requesting Provider: Dr. Irby
Performing Provider: Edwina Ferrer PA-C for Dr. Donaldson
Reason for Consultation: HFpEF, uncontrolled HTN
Medical History
-
History of Present Illness:
HPI: Nino is a 44 year old male with PMH of HTN, IgA nephropathy, and LE edema. He had previous admission in 2022 with hypertensive emergency and was started on lisinopril and nifedipine, however as OP ran out of medications about 1 year later and
did not follow up. He was without treatment until he was again seen in the ER 02/2024 with elevated BPs and was restarted on lisinopril and nifedipine. He then again ran out of these medications about a month later and only restarted them a week or
so ago after getting a short term prescription sent in when he called the cardiology office to make a follow up visit. He then was seen in the office on 05/15 and noted intermittent chest pain as well as significant LE edema L>R with JO with minimal
exertion. BP was significantly elevated in the 150s/100s, so he was sent to ER for evaluation. He stated he was likely going to go back to ER anyway, but wanted to come to appt first. In ER, he was started on IV lasix and had had significant urine
output with some improvement in his edema and breathing. BPs are significantly improved this AM.
PMH:
HTN
IgA nephropathy
LE edema
Past Medical History
Past Medical History: Other (In HPI)
Past Surgical History: None
Social History
Tobacco: Smoker
Alcohol: None
Drug: Marijuana
Personal: Single
Living: Homeless
Family History
Family History: Reviewed & Not Pertinent
Allergies / Home Medications
Allergy/AdvReac Type Severity Reaction Status Date / Time
No Known Allergies Allergy Verified 03/05/24 22:06
�Medication �Instructions �Recorded �Confirmed �Type
nifedipine 60 mg tablet,extended 60 mg PO BID #120 tabs 02/22/22 05/16/24 Rx
release
lisinopril 10 mg tablet 20 mg PO DAILY 05/16/24 05/16/24 History
Review of Systems
-
History Source: Patient
All other systems: Negative unless noted
Physical Exam
Vital Signs
Temp Pulse Resp BP Pulse Ox
98.0 F 73 18 130/90 98
05/16/24 07:05 05/16/24 07:50 05/16/24 07:05 05/16/24 07:50 05/16/24 07:05
Lab Results
05/16/24 06:12
05/16/24 06:12
Troponin I < 0.012 ng/ml 05/15/24 16:36
Fug-R-Ujvlkeujjmp Pept 105 pg/ml 05/15/24 16:36
Physical Exam
General: Well Developed, Well Nourished and No Apparent Distress
HEENT: Normocephalic, Anicteric and Moist Mucous Membranes
Respiratory: Clear and Non Labored Respirations
Cardiac: S1/S2 and Regular Rhythm
Musculoskeletal: No Clubbing, No Cyanosis and Edema
Skin: Warm and Dry
Neuro: AO x 3 and Nonfocal/Grossly Intact
Psych: Calm
Impression / Plan
-
PCP: None
Sack Sewer Machine: Dr. Eng
Impression:
Presented with LE edema, weight gain, SOB
Acute HFpEF
Uncontrolled HTN
IgA nephropathy
Echo 02/20/2022: EF 50-55%, moderate LVH, no significant valvular disease
Echo 05/16/2024: EF 55-60%, moderate cLVH, no significant valvular disease
Plan:
-Presented with LE edema, 40 lb weight gain, and SOB. Admitted w/ concern for acute HFpEF.
-LE uS negative for DVT. D-dimer wnl.
-Given a dose of IV lasix and noted good urine output with this. Negative at least 1.5L on I&Os.
-Creat up to 1.4. Will hold further IV lasix for now.
-He notes edema seemed to worsen a week or so ago when he restarted the nifedipine.
-Will decrease nifedipine to 60mg daily and will start HCTZ 25mg daily for BP control and diuretic.
-Continue lisinopril 10mg daily.
-Check BMP in 1 week as OP.
-Echo 05/16 showed preserved EF with moderate LVH, no significant valvular disease as above.
-ECG reviewed, SR with no acute ischemic changes noted. HR stable on tele.
-Trop negative x1.
-Will arrange follow up for reassessment in cardiology office.
HPI: Nino is a 44 year old male with PMH of HTN, IgA nephropathy, and LE edema. He had previous admission in 2022 with hypertensive emergency and was started on lisinopril and nifedipine, however as OP ran out of medications about 1 year later and
did not follow up. He was without treatment until he was again seen in the ER 02/2024 with elevated BPs and was restarted on lisinopril and nifedipine. He then again ran out of these medications about a month later and only restarted them a week or
so ago after getting a short term prescription sent in when he called the cardiology office to make a follow up visit. He then was seen in the office on 05/15 and noted intermittent chest pain as well as significant LE edema L>R with JO with minimal
exertion. BP was significantly elevated in the 150s/100s, so he was sent to ER for evaluation. He stated he was likely going to go back to ER anyway, but wanted to come to appt first. In ER, he was started on IV lasix and had had significant urine
output with some improvement in his edema and breathing. BPs are significantly improved this AM.
Data Reviewed
-
EKG: Tracing Personally Visualized and interpreted
Radiology: Report Reviewed by me
Ultrasound: Report Reviewed by me
Medical Tests (Nuc Med, Echo etc): Report Reviewed by me
Labs: Labs Reviewed by me
Old Records: Reviewed
[2024-05-16 11:05] VITALS: BP 107/57
--- NOTE | 2024-05-16 14:38 | CM ---
Patient seen at bedside
OBS form signed-in chart
Lives in a 2nd floor apartment alone
PLOF: Independent
denies DME
Denies VN/Rehab
PCP: does not have PCP, information given to patient [facility]
Pharmacy: [facility]
PLAN: home, currently no needs anticipated, CM to follow
[2024-05-16 14:54] VITALS: BP 111/65
[2024-05-16] MEDS: LOVENOX 40 MG SC (17:47)
[2024-05-16 19:00] VITALS: BP 123/75
[2024-05-16 23:12] VITALS: BP 112/69
[2024-05-17 03:25] VITALS: BP 125/68
[2024-05-17 06:00] VITALS: BMI 31.2
[2024-05-17 08:01] VITALS: BP 137/76
[2024-05-17 08:09] LABS: Blood Urea Nitrogen 28 mg/dl (9-20); Calcium 9.4 mg/dl (8.4-10.2); Carbon Dioxide 27 mmol/L (22-30); Chloride 106 mmol/L (98-107); Estimated Creatinine Clearance 112 ml/min; Glucose 112 mg/dl (70-99); Potassium 5.1 mmol/L (3.5-5.1); Sodium 140 mmol/L (135-145); eGFR > 60.00
[2024-05-17] MEDS: ORETIC 25 MG PO (08:36)
[2024-05-17] MEDS: PROCARDIA XL (EXTENDED RELEASE) 60 MG PO (08:36)
--- NOTE | 2024-05-17 11:20 | W.PN.HOSP.TC ---
Today's Communication/Plan
-
TTE pending
Assessment / Plan
Assessment / Plan
Acute heart Failure Exacerbation, unknown EF
-LE without DVT
-admit to telemetry
-significant UO post one dose IV lasix in ER, will continue daily
-TTE
-daily weights, strict I/O
-Cardiology consult
Hg IgA Nephropathy
-F/U UA
-OP f/ui recommended
Essential HTN
-FLIGHT ENGINEER MANAGER Nifedipine,
DVT PPx
Anticipated Discharge: Within 24 hours
Subjective/Interval History
-
Date of Service: May 16, 2024
seen and examined on 05/16/24 -late addendum
states of LE swelling
Objective Data
-
Labs:
Laboratory Results
05/17/24
07:01
Sodium 140
Potassium 5.1
Chloride 106
Carbon Dioxide 27
BUN 28 H
Creatinine 1.2
Glucose 112 H
Calcium 9.4
Vital Signs:
Vital Signs
Temp Pulse Resp BP Pulse Ox
98.3 F 73 21 137/76 98
05/17/24 08:01 05/17/24 08:01 05/17/24 08:01 05/17/24 08:01 05/17/24 08:01
I&O
05/16/24 05/17/24 05/18/24
06:59 06:59 06:59
Intake Total 240 / 240 2400 / 2400
Output Total 182 / 182
Balance -1585 / -1585 2400 / 2400
Physical Exam
-
General: Well Developed and No Apparent Distress
HEENT: Normocephalic, Atraumatic and Moist Mucous Membranes
Respiratory: Clear to Auscultation
Cardiac: Regular Rhythm and S1/S2; Negative Murmur, Rub or Gallop
GI: Soft, Nontender, Nondistended and Normal Bowel Sounds; Negative Organomegaly
Rectal: Deferred by Provider
Musculoskeletal: No Clubbing, No Cyanosis, No Edema, Edema, Right Lower Extrem and Edema, Left Lower Extrem
Skin: Negative Rash
Neuro: Awake, AO x 3, No Motor Deficits and Nonfocal/Grossly Intact
--- NOTE | 2024-05-17 11:22 | W.PN.HOSP.TC ---
Today's Communication/Plan
-
dc home
Op pcp and nephrology f/u
Assessment / Plan
Assessment / Plan
LE edema, weight gain ?due to IgA nephropathy and Acute HFpEF
-LE without DVT
-Cr bumped and was taken off lasix per cards
-TTE noted
-started on HCTZ. Nifedipine dose adjusted/reduce
-daily weights, strict I/O
-Euvolemic . on room air .Cr downtrended to baseline.
-Cardiology consult
Hg IgA Nephropathy
-F/U UA
-OP f/ui recommended
Essential HTN
-nifedipine 60mg daily (reduce from BID). HCTZ added.
-repeat BP 117/74 hr 81-can dc ACEI for now.
-pt w/hx of non compliance and multiple ER visit for uncontrolled BP.
Cervical osteoarthriits
-tylenol prn
DVT PPx-lovenox
More than 30 minutes spent in discharge including
Final examination of the patient
Summarizing hospital stay
Instructions for continuing care to all relevant caregivers
Preparation of discharge records, prescriptions, and referral forms
Total time spent (in minutes): 50
Anticipated Discharge: Today
Subjective/Interval History
-
Date of Service: May 17, 2024
states of improvement in edema
Objective Data
-
Labs:
Laboratory Results
05/17/24
07:01
Sodium 140
Potassium 5.1
Chloride 106
Carbon Dioxide 27
BUN 28 H
Creatinine 1.2
Glucose 112 H
Calcium 9.4
Vital Signs:
Vital Signs
Temp Pulse Resp BP Pulse Ox
98.3 F 73 21 137/76 98
05/17/24 08:01 05/17/24 08:01 05/17/24 08:01 05/17/24 08:01 05/17/24 08:01
I&O
05/16/24 05/17/24 05/18/24
06:59 06:59 06:59
Intake Total 240 / 240 2400 / 2400
Output Total 1825 / 1825
Balance -1585 / -1585 2400 / 2400
Physical Exam
-
General: Well Developed and No Apparent Distress
HEENT: Normocephalic, Atraumatic and Moist Mucous Membranes
Respiratory: Clear to Auscultation
Cardiac: Regular Rhythm and S1/S2; Negative Murmur, Rub or Gallop
GI: Soft, Nontender, Nondistended and Normal Bowel Sounds; Negative Organomegaly
Rectal: Deferred by Provider
Musculoskeletal: No Clubbing, No Cyanosis, No Edema, Edema, Right Lower Extrem (improved ) and Edema, Left Lower Extrem (improved )
Skin: Negative Rash
Neuro: Awake, AO x 3, No Motor Deficits and Nonfocal/Grossly Intact
Psych: Calm
[2024-05-17 12:28] VITALS: BP 117/74
--- NOTE | 2024-05-17 12:30 | W.DCSUMMARY ---
Discharge Summary
Discharge Data
Date of Admission: 05/16/24
Date of Discharge: 05/17/24
-
Pending Results: No
Hospital Course
44-year-old male past medical history of hypertension, IgA nephropathy, noncompliance was presented from PCPs office with complaint of lower extremity edema and shortness of breath. Initially there was concern for heart failure exacerbation patient
received dose of Lasix. Patient was eval by cardiology. Patient underwent lower extremity Doppler which was negative for DVT. Patient underwent echocardiogram which showed EF of 55 to 60%. Left ventricular normal in size. Left normal left
ventricular systolic function. Normal regional wall motion. No significant valvular pathology. Lisinopril was discontinued. Patient Lasix was discontinued. Patient was started hydrochlorothiazide. Patient blood pressure down trended.
Creatinine down trended. Patient be discharged recommendation to follow-up with primary doctor. Patient was also counseled to make appointment with surfboard designer as he used to see surfboard designer in the past. Counseled on compliance with medical
management.
Discharge Plan
-
Patient Disposition: Home (Routine Discharge)
Discharge Diagnosis/Procedures: LE edema, weight gain ?due to IgA nephropathy and Acute HFpEF
Primary hypertension uncontrolled
IgA nephropathy
Condition: Fair
Diet: 2 Gram Sodium
Driving Restrictions: As prior to admission
Blood Work: BMP in 1-2 weeks via primary doctor
Referrals:
NONE,* [Family Provider] - in less than 1 week
Edwina Ferrer PA-C [Specified Professional Personl] - 06/12/24 4:00 pm ( You have a follow up appointment at the [place] office. Please call with questions. )
Additional Discharge Medication Instructions: Lisinopril discontinued for now
Nifedipine 60 mg frequency decreased to daily
Prescriptions:
New
hydrochlorothiazide 25 mg Tablet
25 mg PO DAILY Qty: 30 0RF
Changed
nifedipine 60 mg tablet extended release
60 mg PO DAILY Qty: 30 1RF
Discontinued
lisinopril 10 mg tablet
20 mg PO DAILY
Discharge Orders:
Discharge Patient (As Directed); Ordered 05/17/24
Ordered By: John Isidro
Discharge Date and Time
Print Language: S[place]
--- NOTE | 2024-05-17 12:51 | CM ---
Patient discharge today to home
no needs
IMM n/a
PLAN: Home, no needs
states will uber home
--- NOTE | 2024-05-19 11:22 | W.HF.CON ---
Heart Failure
- LV Function
Left ventricular function study result: LV Ejection fraction >/= 50%
Ejection Fraction Percentage: 55-60
- ARNI
Patient already on ARNI: No
Heart Failure ARNI Not Indicated: LV Ejection Fraction >/= 40%
- ACEI/ARB
Patient already on ACEI/ARB: No
Heart Failure ACEI/ARB Not Indicated: LV Ejection Fraction > 40%
- Beta Rabia
Patient already on Evidence Based Beta Rabia: No
Heart Failure Evidence Based Beta Rabia Not Indicated: LV Ejection Fraction > 40%
- Mineralocorticord Receptor Antagonist
Patient already on MRA: No
Heart Failure MRA Not Indicated: LV Ejection Fraction > 40%
- SGLT-2 Inhibitor
Patient already on SGLT-2 Inhibitor: No
Heart Failure SGLT-2 Inhibitor Not Indicated: LV Ejection Fraction >40%
- NYHA CHF Classification
NYHA CHF Classification Level: Class III - Symptoms w/ min exertion, interferes w/ nml daily activity
- ACC/AHA Stage
ACC/AHA Stage: Stage C: Symptomatic Heart Failure
== END 2024-05-17 15:14 | disposition home or self-care (01) | DRG 698 ==
LOC: 3 WEST ACU 08:17
PROVIDERS: Nurse Practitioner Family; Physician Assistant; Student in an Organized Health Care Education/Training Program; ADMITTING PHYSICIAN Student in an Organized Health Care Education/Training Program; ATTENDING PHYSICIAN Hospitalist; EMERGENCY PHYSICIAN Emergency Medicine; OTHER PHYSICIAN Internal Medicine Cardiovascular Disease
DX: N02.B1 Recurrent and persistent immunoglobulin A nephropathy with glomerular lesion (principal); I50.31 Acute diastolic (congestive) heart failure; Z59.00 Homelessness unspecified; I11.0 Hypertensive heart disease with heart failure; G43.909 Migraine, unspecified, not intractable, without status migrainosus; F17.210 Nicotine dependence, cigarettes, uncomplicated; R61 Generalized hyperhidrosis; Z60.2 Problems related to living alone; Z82.49 Family history of ischemic heart disease and other diseases of the circulatory system; Z91.199 Patient's noncompliance with other medical treatment and regimen due to unspecified reason
CPT/HCPCS: 71046; 80048; 80053; 80061; 81003; 81015; 83880; 84484; 85025; 85027; 85379; 93005; 93306; 93970; 96374; 99285

== ENCOUNTER → 2024-06-12 10:14 | Outpatient (REF) | payer OTHER, SELFPAY ==
[2024-06-12 11:35] LABS: Blood Urea Nitrogen 22 mg/dl (9-20); Glucose 139 mg/dl (70-99)
[2024-06-12 11:36] LABS: Calcium 10.3 mg/dl (8.4-10.2); Carbon Dioxide 31 mmol/L (22-30); Chloride 102 mmol/L (98-107); Potassium 4.8 mmol/L (3.5-5.1); Sodium 142 mmol/L (135-145); eGFR 54.15
== END ==
LOC: REG 10:14
PROVIDERS: ATTENDING PHYSICIAN Physician Assistant
DX: I10 Essential (primary) hypertension (principal)
CPT/HCPCS: 36415; 80048